=== PATIENT | female | born 1980 | race Caucasian/White ===

== ENCOUNTER → 2019-04-18 | Outpatient (CLI) | payer BC | LOC: MC.RAD 15:39 | DX: Z12.31 Encounter for screening mammogram for malignant neoplasm of breast (principal); Z01.411 Encounter for gynecological examination (general) (routine) with abnormal findings ==

== ENCOUNTER 2019-09-08 20:34 | Emergency (ER) | payer BC ==
[~2019-09-08] VITALS: Ht 162.6 cm; Wt 54.5 kg
[2019-09-08 20:41] VITALS: TEMP 98.3
[2019-09-08] MEDS ORDERED: CRUTCHES MC (23:02)
[2019-09-08] MEDS ORDERED: NORCO 325 MG-51 TAB PO (23:02)
[2019-09-08 23:10] VITALS: BP 122/73; PULSE 99
== END 2019-09-08 23:10 | disposition home or self-care (01) ==
LOC: COL.ER 20:34
DX: S82.852A Displaced trimalleolar fracture of left lower leg, initial encounter for closed fracture (principal); Z90.710 Acquired absence of both cervix and uterus; W00.0XXA Fall on same level due to ice and snow, initial encounter; Y92.009 Unspecified place in unspecified non-institutional (private) residence as the place of occurrence of the external cause
CPT/HCPCS: J3010; Q4045

== ENCOUNTER → 2021-05-11 | Outpatient (CLI) | payer BC ==
[~2021-05-11] MED LIST: CRUTCHES MC; NORCO 325 MG-51 TAB PO
== END ==
LOC: MC.RAD 15:51
DX: Z12.31 Encounter for screening mammogram for malignant neoplasm of breast (principal)